=== PATIENT | male | born 1970 | race Caucasian/White ===

== ENCOUNTER 2017-02-01 23:30 | Inpatient (IN) | payer MEDICAID ==
[~2017-02-01] VITALS: Ht 170.2 cm; Wt 79.8 kg
[2017-02-02 00:17] LABS: BASOPHIL % 0.1 % (0-2); PLATELET COUNT 240 x10^3mcL (130-400); RED CELL DISTRIBUTION WIDTH 13.1 % (11.5-14.5)
[2017-02-02 00:32] LABS: T3 TOTAL 1.26 ng/mL
[2017-02-02 00:34] LABS: BILIRUBIN TOTAL 0.5 mg/dL (0.20-1.00); CALCIUM 9.1 mg/dL (8.5-10.1); CARBON DIOXIDE 24.2 mmol/L (21-32); CHOLESTEROL/HDL RATIO 3.8; CREATININE SERUM 1.6 mg/dL (0.7-1.3); POTASSIUM SERUM 3.3 mmol/L (3.5-5.1); TOTAL PROTEIN, SERUM 7.8 g/dL (6.4-8.2)
[2017-02-02 01:00] LABS: FREE T4 1.01 ng/dL (0.76-1.46); FREE THYROXINE INDEX 2.9 ug/dL (1.4-4.5); T4(THYROXINE) 7.9 ug/dL (4.7-13.3)
[2017-02-02 01:09] LABS: microscopic required? YES; urine erythrocyte 2+ (NEGATIVE)
[2017-02-02 02:38] LABS: PHOSPHOROUS 1.4 mg/dL (2.5-4.9)
[2017-02-02 04:04] VITALS: BP 122/81
[2017-02-02 06:22] LABS: BASOPHIL % 0.2 % (0-2); PLATELET COUNT 227 x10^3mcL (130-400); RED CELL DISTRIBUTION WIDTH 13.4 % (11.5-14.5)
[2017-02-02 06:35] LABS: CALCIUM 8.8 mg/dL (8.5-10.1); CARBON DIOXIDE 25.2 mmol/L (21-32); CHLORIDE SERUM 112 mmol/L (98-107); CREATININE SERUM 1.2 mg/dL (0.7-1.3); GFR1 > 60 mL/min; GLUCOSE SERUM 96 mg/dL (74-106); POTASSIUM SERUM 4.3 mmol/L (3.5-5.1); SODIUM SERUM 149 mmol/L (136-145)
[2017-02-02 08:58] VITALS: BP 122/73
[2017-02-02 10:19] LABS: AMPHETAMINE QUAL UR NONE DETECTED (NEG <=1000)
[2017-02-02 13:50] VITALS: BP 124/79
[2017-02-02 17:14] VITALS: BP 135/92
[2017-02-02 21:47] VITALS: BP 109/72
[2017-02-03 06:03] LABS: BASOPHIL % 0.5 % (0-2); PLATELET COUNT 202 x10^3mcL (130-400)
[2017-02-03 06:23] VITALS: BP 128/87
[2017-02-03 06:24] LABS: CALCIUM 8.2 mg/dL (8.5-10.1); CARBON DIOXIDE 25.7 mmol/L (21-32); CHLORIDE SERUM 112 mmol/L (98-107); GFR1 > 60 mL/min; GLUCOSE SERUM 89 mg/dL (74-106); PHOSPHOROUS 3.3 mg/dL (2.5-4.9); POTASSIUM SERUM 4.2 mmol/L (3.5-5.1); SODIUM SERUM 147 mmol/L (136-145)
[2017-02-03 08:30] VITALS: BP 120/86
[2017-02-03] MEDS ORDERED: FLO4 PO (12:38)
[2017-02-03] MEDS ORDERED: LIPI20 PO (12:39)
[2017-02-03] MEDS ORDERED: APAP/HYDROCODON1 T13 PO (12:39)
[2017-02-03] MEDS ORDERED: COL100 PO (12:41)
== END 2017-02-03 13:38 | disposition home or self-care (01) | DRG 465 ==
LOC: ED 23:30 → MU 02-02 01:35 → DU 02-02 01:35 → MU 02-02 11:33
PROVIDERS: Specialist; ADMIT Family Medicine
DX: N13.2 Hydronephrosis with renal and ureteral calculous obstruction (principal); N17.0 Acute kidney failure with tubular necrosis; E87.0 Hyperosmolality and hypernatremia; E87.6 Hypokalemia; E83.51 Hypocalcemia; E83.39 Other disorders of phosphorus metabolism; E78.5 Hyperlipidemia, unspecified
CPT/HCPCS: 83880; 84439; J0696; J1170; J1885; J2405; J3010; J7030; Q0092